=== PATIENT | female | born 2005 | race Caucasian/White ===

== ENCOUNTER 2023-05-15 22:35 | Emergency (ER) | payer SELFPAY ==
[2023-05-15 22:56] VITALS: RESP 18; BMI 19.9
[2023-05-15] MEDS ORDERED: ACETAMINOPHEN 1000 MG/100 ML BAG IVPB ONE (23:18)
[2023-05-15 23:38] LABS: URINE APPEARANCE CLEAR; URINE BILIRUBIN NEGATIVE (NEGATIVE); URINE COLOR YELLOW; URINE GLUCOSE (UA) NEGATIVE (NEGATIVE); URINE KETONE NEGATIVE (NEGATIVE); URINE LEUK ESTERASE NEGATIVE (NEGATIVE); URINE NITRITE NEGATIVE (NEGATIVE); URINE PROTEIN NEGATIVE (NEGATIVE)
[2023-05-15 23:41] LABS: BASO % 0.8 % (0-2.0); EOS % 2.9 % (0-4.5); HEMATOCRIT 36.9 % (32.4-45.2); HEMOGLOBIN 12.8 GM/dL (10.7-15.3); LYMPH % 31.6 % (8-40); MCH 29.7 pg (25.7-33.7); MCHC 34.6 g/dl (32.0-36.0); MEAN CELL VOLUME 85.8 fl (80-96); MEAN PLT VOLUME 8.7 fl (7.5-11.1); MONO % 7.2 % (3.8-10.2); NEUT % 57.5 % (42.8-82.8); PLATELET COUNT 184 10^3/uL (134-434); RBC 4.29 M/mm3 (3.60-5.2); RDW 12.9 % (11.6-15.6); WHITE BLOOD COUNT 5.6 K/mm3 (4.0-10.0)
[2023-05-15 23:48] LABS: INR 1.03 (0.83-1.09)
[2023-05-15 23:51] LABS: ACTIVATED PTT 28.1 SECONDS (25.2-36.5)
[2023-05-16] MEDS ORDERED: ACETAMINOPHEN INJECTION 100 ML IVPB ONE (00:02)
[2023-05-16 00:08] LABS: POTASSIUM 3.9 mmol/L (3.5-5.1)
[2023-05-16 00:10] LABS: ALBUMIN 3.6 g/dl (3.4-5.0); CALCIUM 8.2 mg/dL (8.5-10.1)
[2023-05-16 00:14] LABS: CREATININE 0.5 mg/dL (0.55-1.3)
[2023-05-16 00:15] LABS: BILIRUBIN,TOTAL 0.3 mg/dL (0.2-1)
[2023-05-16 00:17] LABS: TOT PROT 6.9 g/dl (6.4-8.2)
[2023-05-16 02:35] VITALS: BP 101/52; PULSE 70; TEMP 98.9
== END 2023-05-16 04:32 | disposition short-term general hospital (02) ==
LOC: JER 22:35
PROC: 3E033NZ Introduction of Analgesics, Hypnotics, Sedatives into Peripheral Vein, Percutaneous Approach (ICD-10-PCS; principal; 2023-05-15)
DX: O26.891 Other specified pregnancy related conditions, first trimester (principal); R10.31 Right lower quadrant pain; R30.0 Dysuria; R35.0 Frequency of micturition; R10.2 Pelvic and perineal pain; Z3A.01 Less than 8 weeks gestation of pregnancy; Z20.822 Contact with and (suspected) exposure to COVID-19
CPT/HCPCS: 36415; 76817-TC; 80053; 81003; 84702; 84703; 85025; 85610; 85730; 86850; 86900; 86901; 87086; 87635; 99284-25

== ENCOUNTER 2023-05-25 21:41 | Emergency (ER) | payer SELFPAY ==
[2023-05-25 21:46] VITALS: BP 104/52; PULSE 70; RESP 19; TEMP 98.6; BMI 26.9
== END 2023-05-25 22:53 | disposition left against medical advice (07) ==
LOC: JER 21:41
DX: O26.891 Other specified pregnancy related conditions, first trimester (principal); R10.30 Lower abdominal pain, unspecified; Z3A.01 Less than 8 weeks gestation of pregnancy
CPT/HCPCS: 99281-25

== ENCOUNTER 2023-08-09 21:45 | Emergency (ER) | payer OTHER ==
[2023-08-09 21:56] VITALS: BMI 24.6
[2023-08-09 23:03] VITALS: BP 102/54; PULSE 72; RESP 17; TEMP 98.3
[2023-08-10 00:15] LABS: URINE APPEARANCE CLEAR; URINE BILIRUBIN NEGATIVE (NEGATIVE); URINE COLOR YELLOW; URINE GLUCOSE (UA) NEGATIVE (NEGATIVE); URINE KETONE NEGATIVE (NEGATIVE)
[2023-08-10 00:16] LABS: PH,URINE 7.5 (5.0-8.0); URINE LEUK ESTERASE 1+ (NEGATIVE); URINE NITRITE NEGATIVE (NEGATIVE); URINE PROTEIN NEGATIVE (NEGATIVE)
[2023-08-10] MEDS ORDERED: ACETAMINOPHEN 325 MG TABLET (FP) ONE (00:26)
[2023-08-10] MEDS ORDERED: ceFAZolin SODIUM 1 GM VIAL ONE (00:26)
[2023-08-10] MEDS ORDERED: ACETAMINOPHEN 325 MG TABLET (FP) PO ONE (00:30)
[2023-08-10] MEDS ORDERED: CEFAZOLIN 1 GM in DEXTROSE 5%-WATER - 50 ML IVPB ONE (00:30)
== END 2023-08-10 01:10 | disposition admitted as inpatient to this hospital (09) ==
LOC: JER 21:45
DX: O26.892 Other specified pregnancy related conditions, second trimester (principal); R10.2 Pelvic and perineal pain; Z3A.22 22 weeks gestation of pregnancy
CPT/HCPCS: 76801-TC; 76817-TC; 81003; 99284-25

== ENCOUNTER 2024-01-19 19:05 | Inpatient (IN) | payer OTHER ==
[2024-01-19 20:22] LABS: INR 0.92 (0.83-1.09); PROTHROMBIN TIME (PATIENT) 10.7 SEC (9.7-13.0)
[2024-01-19 20:25] LABS: ACTIVATED PTT 24.8 SECONDS (25.2-36.5)
[2024-01-19 20:38] LABS: BASO % 0.3 % (0-2.0); EOS % 0.8 % (0-4.5); HEMATOCRIT 37.2 % (32.4-45.2); HEMOGLOBIN 12.6 GM/dL (10.7-15.3); LYMPH % 14.9 % (8-40); MCH 30.2 pg (25.7-33.7); MCHC 33.8 g/dl (32.0-36.0); MEAN CELL VOLUME 89.4 fl (80-96); MEAN PLT VOLUME 8.9 fl (7.5-11.1); MONO % 7.8 % (3.8-10.2); NEUT % 76.2 % (42.8-82.8); PLATELET COUNT 163 10^3/uL (134-434); RBC 4.17 M/mm3 (3.60-5.2); RDW 14.6 % (11.6-15.6); WHITE BLOOD COUNT 6.4 K/mm3 (4.0-10.0)
[2024-01-19 20:53] VITALS: BMI 21.9
[2024-01-19 20:59] LABS: POTASSIUM 3.9 mmol/L (3.5-5.1)
[2024-01-19 21:07] LABS: CALCIUM 8.9 mg/dL (8.5-10.1)
[2024-01-19 21:08] LABS: BLOOD UREA NITROGEN 7.4 mg/dL (7-18)
[2024-01-19 21:11] LABS: CREATININE 0.4 mg/dL (0.55-1.3)
[2024-01-19] MEDS: DINOPROSTONE 10 MG VAGINAL SUPPOSITORY VG STA (21:35)
[2024-01-19] MEDS: ELECTROLYTE-148 SOLN 1,000 ML IV SCH (21:45)
[2024-01-19] MEDS ORDERED: ELECTROLYTE-148 SOLN 1,000 ML IV SCH (22:00)
[2024-01-20] MEDS: PROMETHAZINE HCL 25 MG/1 ML VIAL IVPB PRN (06:40)
[2024-01-20] MEDS: BUTORPHANOL TARTRATE 1 MG/ML VIAL IVPB ONE (06:40)
[2024-01-20] MEDS ORDERED: BUTORPHANOL TARTRATE 2 MG/ML VIAL ONE ×2 (06:42→10:41)
[2024-01-20] MEDS ORDERED: PROMETHAZINE HCL 25 MG/1 ML VIAL ONE ×2 (06:43→10:41)
[2024-01-20] MEDS: BUTORPHANOL TARTRATE 2 MG/ML VIAL IVPB ONE (10:30)
[2024-01-20] MEDS ORDERED: FENTANYL/BUPIVACAINE/NS/PF - PCEA - 50 ML DISP.SYRIN EP ONE ×2 (17:44→22:56)
[2024-01-20] MEDS: FENTANYL/BUPIVACAINE/NS/PF - PCEA - 50 ML DISP.SYRIN EP SCH (18:10)
[2024-01-20] MEDS ORDERED: NALOXONE HCL 0.4 MG/ML VIAL IVPUSH PRN (18:18)
[2024-01-20] MEDS ORDERED: OXYTOCIN 30 UNITS in 0.9% NS 30 UNIT/500 ML INFUS.BAG IVPB ONE (21:40)
[2024-01-20] MEDS: OXYTOCIN 30 UNITS in 0.9% NS 30 UNIT/500 ML INFUS.BAG IVPB SCH (21:45)
[2024-01-21] MEDS ORDERED: FENTANYL/BUPIVACAINE/NS/PF - PCEA - 50 ML DISP.SYRIN EP ONE ×2 (03:55→08:27)
[2024-01-21] MEDS ORDERED: FENTANYL CITRATE/PF 50 MCG/ML VIAL ONE (07:57)
[2024-01-21] MEDS ORDERED: BUPIVACAINE HCL/PF 0.25% (2.5MG/ML) 10 ML VIAL ONE (07:57)
[2024-01-21] MEDS: AMPICILLIN NA/SULBACTAM NA 3 GM in SODIUM CHLORIDE 100 ML IVPB SCH (10:40)
[2024-01-21] MEDS: AMPICILLIN NA/SULBACTAM NA 3 GM in SODIUM CHLORIDE 100 ML IVPB STA (10:55)
[2024-01-21] MEDS ORDERED: ACETAMINOPHEN 325 MG TABLET (FP) PO PRN (11:07)
[2024-01-21] MEDS ORDERED: IBUPROFEN 600 MG TABLET (FP) PO PRN (11:07)
[2024-01-21] MEDS ORDERED: ONDANSETRON 4 MG/2 ML VIAL IVPUSH PRN (11:07)
[2024-01-21] MEDS ORDERED: OXYTOCIN 30 UNITS in 0.9% NS 30 UNIT/500 ML INFUS.BAG IVPB ONE (11:11)
[2024-01-21] MEDS ORDERED: LIDO 2%/EPI 1:200000 PRESRVFRE (20 ML SDVIAL) ONE (11:11)
[2024-01-21] MEDS ORDERED: KETOROLAC TROMETHAMINE 30 MG/1 ML VIAL ONE (12:15)
[2024-01-21] MEDS ORDERED: morphine SULFATE/PF 1 MG/2 ML (2cc Syringe - QUVA) ONE (12:27)
[2024-01-21] MEDS ORDERED: OXYTOCIN 20 UNITS in 0.9% NS 20 UNIT/1,000 ML INFUS.BAG IV ONE (13:27)
[2024-01-21] MEDS: OXYTOCIN 20 UNITS in 0.9% NS 20 UNIT/1,000 ML INFUS.BAG IV SCH (13:30)
[2024-01-21 14:05] LABS: CORD BASE EXCESS -2.1 mmol/L (0-2); CORD BASE EXCESS -4.7 mmol/L (0-2); CORD HCO3 20.5 mmHg (20-29); CORD HCO3 23.9 mmHg (20-29); CORD PCO2 38.7 mmHg (30-78); CORD PCO2 45.1 mmHg (30-78); CORD pH 7.342 (7.14-7.44)
[2024-01-21] MEDS: SIMETHICONE 80 MG TAB.CHEW (FP) PO PRN (20:43)
[2024-01-21] MEDS ORDERED: oxyCODONE HCL 5 MG TABLET PO PRN (23:05)
[2024-01-22] MEDS: IBUPROFEN 800 MG/8 ML IJ IVPB PRN (05:43)
[2024-01-22 08:25] LABS: BASO % 0.2 % (0-2.0); EOS % 0.3 % (0-4.5); HEMATOCRIT 29.9 % (32.4-45.2); HEMOGLOBIN 10.2 GM/dL (10.7-15.3); LYMPH % 10.6 % (8-40); MCH 30.8 pg (25.7-33.7); MCHC 34.2 g/dl (32.0-36.0); MEAN CELL VOLUME 90.1 fl (80-96); MEAN PLT VOLUME 8.6 fl (7.5-11.1); MONO % 6.7 % (3.8-10.2); NEUT % 82.2 % (42.8-82.8); PLATELET COUNT 123 10^3/uL (134-434); RBC 3.32 M/mm3 (3.60-5.2); RDW 14.8 % (11.6-15.6); WHITE BLOOD COUNT 9.5 K/mm3 (4.0-10.0)
[2024-01-22] MEDS: ACETAMINOPHEN 325 MG TABLET (FP) PO PRN (08:57)
[2024-01-22] MEDS ORDERED: BISACODYL 10 MG SUPP.RECT RC PRN (11:05)
[2024-01-22] MEDS: AMPICILLIN NA/SULBACTAM NA 3 GM in DEXTROSE 5%-WATER 100 ML IVPB STA (17:15)
[2024-01-22] MEDS: IBUPROFEN 600 MG TABLET (FP) PO PRN (20:20)
[2024-01-24 07:55] LABS: BASO % 0.3 % (0-2.0); EOS % 1.6 % (0-4.5); HEMATOCRIT 31.7 % (32.4-45.2); HEMOGLOBIN 10.7 GM/dL (10.7-15.3); LYMPH % 20.3 % (8-40); MCH 30.3 pg (25.7-33.7); MCHC 33.6 g/dl (32.0-36.0); MEAN CELL VOLUME 90.3 fl (80-96); MEAN PLT VOLUME 8.6 fl (7.5-11.1); MONO % 5.1 % (3.8-10.2); NEUT % 72.7 % (42.8-82.8); PLATELET COUNT 167 10^3/uL (134-434); RBC 3.51 M/mm3 (3.60-5.2); RDW 14.9 % (11.6-15.6); WHITE BLOOD COUNT 6.4 K/mm3 (4.0-10.0)
[2024-01-24 08:34] VITALS: BP 106/61; PULSE 79; RESP 20; TEMP 98.3
== END 2024-01-24 14:02 | disposition home or self-care (01) | DRG 540 ==
LOC: JLDR 19:05 → J3W 01-21 15:20
PROVIDERS: ADMIT Student in an Organized Health Care Education/Training Program; ATTEND Student in an Organized Health Care Education/Training Program
PROC: 10D00Z1 Extraction of Products of Conception, Low, Open Approach (ICD-10-PCS; principal; 2024-01-21)
DX: O48.0 Post-term pregnancy (principal); Z3A.41 41 weeks gestation of pregnancy; O62.1 Secondary uterine inertia; O41.1230 Chorioamnionitis, third trimester, not applicable or unspecified; O61.8 Other failed induction of labor; Z37.0 Single live birth
CPT/HCPCS: 36415; 36600; 76815-TC; 80048; 82803; 85025; 85610; 85730; 86780; 86850; 86900; 86901; 88307-TC

== ENCOUNTER 2024-02-04 16:22 | Emergency (ER) | payer OTHER ==
[2024-02-04 16:45] VITALS: BP 98/56; PULSE 93; RESP 17; TEMP 97.7; BMI 20.7
== END 2024-02-04 18:24 | disposition home or self-care (01) ==
LOC: JER 16:22 → JERFT 16:22
DX: R21 Rash and other nonspecific skin eruption (principal)
CPT/HCPCS: 99282-25

== ENCOUNTER 2024-03-21 16:42 | Emergency (ER) | payer OTHER ==
[2024-03-21 16:47] VITALS: BP 92/54; PULSE 82; RESP 18; TEMP 97.4
[2024-03-21 17:28] LABS: EPI CELLS 30 /uL (0-25.1); HYALINE CASTS 2 /uL (0-3.1); PH,URINE 5.5 (5.0-8.0); URINE APPEARANCE CLEAR; URINE BACTERIA 67 /uL (0-1359); URINE BILIRUBIN NEGATIVE (NEGATIVE); URINE COLOR YELLOW; URINE GLUCOSE (UA) NEGATIVE (NEGATIVE); URINE KETONE TRACE (NEGATIVE); URINE LEUK ESTERASE NEGATIVE (NEGATIVE); URINE NITRITE NEGATIVE (NEGATIVE); URINE PROTEIN TRACE (NEGATIVE); URINE RBC 42 /uL (0-23.9); URINE WBC 20 /uL (0-25.8)
[2024-03-21 17:59] LABS: HCG,QUALITATIVE URINE Negative
[2024-03-21 18:11] VITALS: BMI 24.3
== END 2024-03-21 18:28 | disposition home or self-care (01) ==
LOC: JER 16:42
DX: R10.2 Pelvic and perineal pain (principal); N93.9 Abnormal uterine and vaginal bleeding, unspecified
CPT/HCPCS: 76830-TC; 81003; 84703; 87070; 87086; 87205; 99284-25